=== PATIENT | male | born 1985 | race Caucasian/White ===

== ENCOUNTER 2018-04-11 18:15 | Emergency (ER) | payer OTHER ==
[~2018-04-11] VITALS: Ht 172.7 cm; Wt 56.7 kg
[2018-04-11] MEDS ORDERED: IV RINGERS SOLUTION,LACTATED 1,000 ML IV SCH (18:34)
--- NOTE | 2018-04-11 18:36 | ED.ADGEN ---
Past History Past Medical History: Kidney Stones Smoking: Cigarettes Adult General Chief Complaint Chief Complaint ".. I ve got bad abd. pain..."... Here on the right .. it was higher.. but now lower.. It ann like prior kidney stones.. I ve had them three times... had that US thing to break them up once..." HPI HPI Patient is a 32 year old male who presents with above hx and complaints of abd. pain. His right flank that radiates to his groin. Patient denies any trauma. or dysuria. Patient denies any travel or specific ill contacts. Patient does have a history of prior kidney stones. One previous episode required lithotripsy to break the stone up. Patient has strong family history both her grandfather had an great-grandfather having kidney stones. She denies patient denies any immunosuppression. Patient denies any problems with bowels. Patient recently moved from [facility]. ( No Primary care locally. Review of Systems Review of Systems Constitutional: Denies fever or chills [] Eyes: Denies change in visual acuity, redness, or eye pain [] HENT: Denies nasal congestion or sore throat [] Respiratory: Denies cough or shortness of breath [] Cardiovascular: No additional information not addressed in HPI [] GI: Denies abdominal pain, nausea, vomiting, bloody stools or diarrhea [] : Denies dysuria . Hx. of hematuria yesterday. Musculoskeletal: Rt flank back pain . Denies joint pain []Rt. flank pain. Integument: Denies rash or skin lesions [] Neurologic: Denies headache, focal weakness or sensory changes [] Endocrine: Denies polyuria or polydipsia [] All other systems were reviewed and found to be within normal limits, except as documented in this note. Family History Family History Renal stones Current Medications Current Medications Current Medications Medications (Trade) Dose Ordered Sig/Cari Start Time Stop Time Status Last Admin Dose Admin Famotidine (Pepcid Vial) 20 mg 1X ONCE 04/11/18 19:15 04/11/18 19:16 DC 04/11/18 19:15 20 MG Ketorolac Tromethamine (Toradol) 30 mg 1X ONCE 04/11/18 19:15 04/11/18 19:16 DC 04/11/18 19:15 30 MG Lactated Ringer's 1,000 ml @ 1,000 mls/hr Q1H 04/11/18 18:34 04/11/18 19:33 DC 04/11/18 19:16 1,000 MLS/HR Levofloxacin (Levaquin) 500 mg 1X ONCE 04/11/18 19:15 04/11/18 19:16 DC 04/11/18 19:15 500 MG Ondansetron HCl (Zofran Odt) 8 mg 1X ONCE 04/11/18 19:15 04/11/18 19:16 DC 04/11/18 19:15 8 MG Tamsulosin HCl (Flomax) 0.4 mg 1X ONCE 04/11/18 19:15 04/11/18 19:16 DC 04/11/18 19:15 0.4 MG Allergies Allergies Allergies Coded Allergies Type Severity Reaction Last Updated Verified acetaminophen Allergy Unknown 04/11/18 Yes hydrocodone Allergy Unknown 04/11/18 Yes loratadine Allergy Unknown 04/11/18 Yes montelukast Allergy Unknown 04/11/18 Yes tramadol Allergy Unknown 04/11/18 Yes Physical Exam Physical Exam Constitutional: Well developed, well nourished, Mild to moderate acute distress , non-toxic appearance. [] HENT: Normocephalic, atraumatic, bilateral external ears normal, oropharynx moist, no oral exudates, nose normal. [] Eyes: PERRLA, EOMI, conjunctiva normal, no discharge. Glasses. Neck: Normal range of motion, no tenderness, supple, no stridor. [] Cardiovascular:Heart rate regular rhythm, no murmur [] Lungs & Thorax: Bilateral breath sounds equal apexes, with basilar wheezes and crackles Rt. base. on auscultation [] Abdomen: Bowel sounds decreased, soft, no tenderness, no masses, no pulsatile masses. [] No scrotal tenderness. Declines rectal exam. No penile discharge. Skin: Warm, dry, no erythema, no rash. [] Back: No tenderness, Rt. CVA tenderness. [] Extremities: No tenderness, no cyanosis, no clubbing, ROM intact, no edema. [] No psoas and or heel tap. Neurologic: Alert and oriented X 3, normal motor function, normal sensory function, no focal deficits noted. [] Psychologic: Affect normal, judgement normal, mood normal. [] Current Patient Data Vital Signs Vital Signs Date Time Temp Pulse Resp B/P (MAP) Pulse Ox O2 Delivery O2 Flow Rate FiO2 04/11/18 20:25 20 Room Air 04/11/18 18:39 98.9 102 98 Lab Results Laboratory Tests Test 04/11/18 18:35 White Blood Count 10.8 x10^3/uL (4.0-11.0) Red Blood Count 4.31 x10^6/uL (4.30-5.70) Hemoglobin 14.9 g/dL (13.0-17.5) Hematocrit 41.9 % (39.0-53.0) Mean Corpuscular Volume 97 fL (79-100) Mean Corpuscular Hemoglobin 35 pg (25-35) Mean Corpuscular Hemoglobin Concent 36 g/dL (31-37) Red Cell Distribution Width 12.1 % (11.5-14.5) Platelet Count 264 x10^3/uL (140-400) Neutrophils (%) (Auto) 75 % (31-73) H Lymphocytes (%) (Auto) 14 % (24-48) L Monocytes (%) (Auto) 8 % (0-9) Eosinophils (%) (Auto) 3 % (0-3) Basophils (%) (Auto) 1 % (0-3) Neutrophils # (Auto) 8.1 x10^3uL (1.8-7.7) H Lymphocytes # (Auto) 1.5 x10^3/uL (1.0-4.8) Monocytes # (Auto) 0.9 x10^3/uL (0.0-1.1) Eosinophils # (Auto) 0.3 x10^3/uL (0.0-0.7) Basophils # (Auto) 0.1 x10^3/uL (0.0-0.2) Prothrombin Time 9.8 SEC (9.4-11.4) Prothrombin Time INR 1.0 (0.9-1.1) PTT 27 SEC (23-33) Urine Collection Type Unknown Urine Color Yellow Urine Clarity Clear Urine pH 7.5 Urine Specific [place] 1.015 Urine Protein Neg (NEG-TRACE) Urine Glucose (UA) Neg mg/dL (NEG) Urine Ketones (Stick) Neg mg/dL (NEG) Urine Blood Neg (NEG) Urine Nitrite Neg (NEG) Urine Bilirubin Neg (NEG) Urine Urobilinogen Dipstick 1 mg/dL (0.2 mg/dL) Urine Leukocyte Esterase Neg (NEG) Urine RBC Occ /HPF (0-2) Urine WBC Occ /HPF (0-4) Urine Squamous Epithelial Cells None /LPF Urine Bacteria 0 /HPF (0-FEW) Sodium Level 142 mmol/L (136-145) Potassium Level 4.2 mmol/L (3.5-5.1) Chloride Level 102 mmol/L (98-107) Carbon Dioxide Level 30 mmol/L (21-32) Anion Gap 10 (6-14) Blood Urea Nitrogen 8 mg/dL (8-26) Creatinine 1.1 mg/dL (0.7-1.3) Estimated GFR (Cockcroft-Gault) 77.1 Glucose Level 103 mg/dL (70-99) H Calcium Level 9.6 mg/dL (8.5-10.1) Total Bilirubin 0.2 mg/dL (0.2-1.0) Direct Bilirubin 0.1 mg/dL (0.0-0.2) Aspartate Amino Transferase (AST) 12 U/L (15-37) L Alanine Aminotransferase (ALT) 20 U/L (16-63) Alkaline Phosphatase 79 U/L (46-116) Troponin I Quantitative < 0.017 ng/mL (0-0.055) Total Protein 7.9 g/dL (6.4-8.2) Albumin 3.7 g/dL (3.4-5.0) Amylase Level 88 U/L (25-115) Lipase 69 U/L (73-393) L Urine Opiates Screen Pos (NEG) Urine Methadone Screen Neg (NEG) Urine Barbiturates Neg (NEG) Urine Phencyclidine Screen Neg (NEG) Urine Amphetamine/Methamphetamine Neg (NEG) Urine Benzodiazepines Screen Neg (NEG) Urine Cocaine Screen Neg (NEG) Urine Cannabinoids Screen Neg (NEG) Urine Ethyl Alcohol Neg (NEG) EKG EKG [] Radiology/Procedures Radiology/Procedures My interpretation of acute abdomen shows no acute cardiopulmonary findings. No free air under the diaphragm. Does have abnormal striation in right lower lung field[], scar vs. infiltrate. Course & Med Decision Making Course & Med Decision Making Pertinent Labs and Imaging studies reviewed. (See chart for details). Pt encouraged to stop smoking. Pt. to be on clear fluid diet x 48 hrs. No solids or milk products. Must allow bowel rest. Tylenol and Ibuprofen for pain. Marked pain vicoprofen. Zofran 8 mg up 4 x day nausea and vomiting. Push fruit juices. Return if any concerns. Follow up primary and urology. [] Final Impression Final Impression 1. Abdomen Pain[] 2. Renal colic Rt. 3. Basilar Atelectasis- more on Rt. 4. Tobacco use. Dragon Disclaimer Dragon Disclaimer This electronic medical record was generated, in whole or in part, using a voice recognition dictation system. DO LADD MD April 11, 2018 18:36
[2018-04-11 18:39] VITALS: BP 134/73
[2018-04-11 18:53] LABS: BASO # 0.1 x10^3/uL (0.0-0.2); BASO % 1 % (0-3); EOS # 0.3 x10^3/uL (0.0-0.7); EOS % 3 % (0-3); HEMATOCRIT 41.9 % (39.0-53.0); HEMOGLOBIN 14.9 g/dL (13.0-17.5); LYMPH # 1.5 x10^3/uL (1.0-4.8); LYMPH % 14 % (24-48); MEAN CORPUSCULAR HEMOGLOBIN 35 pg (25-35); MEAN CORPUSCULAR HGB CONC 36 g/dL (31-37); MEAN CORPUSCULAR VOLUME 97 fL (79-100); MONO # 0.9 x10^3/uL (0.0-1.1); MONO % 8 % (0-9); NEUT # 8.1 x10^3uL (1.8-7.7); NEUT % 75 % (31-73); PLATELET COUNT 264 x10^3/uL (140-400); RED BLOOD COUNT 4.31 x10^6/uL (4.30-5.70); RED CELL DISTRIBUTION WIDTH 12.1 % (11.5-14.5); WHITE BLOOD COUNT 10.8 x10^3/uL (4.0-11.0)
[2018-04-11 19:07] LABS: ALBUMIN 3.7 g/dL (3.4-5.0); CALCIUM 9.6 mg/dL (8.5-10.1); CREATININE 1.1 mg/dL (0.7-1.3); DIRECT BILIRUBIN 0.1 mg/dL (0.0-0.2); GFR 77.1; POTASSIUM 4.2 mmol/L (3.5-5.1); TOTAL BILIRUBIN 0.2 mg/dL (0.2-1.0); TOTAL PROTEIN 7.9 g/dL (6.4-8.2)
[2018-04-11 19:14] LABS: AMPHETAMINE/METHAMPHETAMINE NEG (NEG); BARBITURATES NEG (NEG); BENZODIAZEPINES NEG (NEG); CANNABINOIDS NEG (NEG); COCAINE NEG (NEG); METHADONE NEG (NEG); OPIATES POS (NEG); PHENCYCLIDINE NEG (NEG)
[2018-04-11] MEDS ORDERED: ONDANSETRON ODT 4 MG TAB.RAPDIS PO ONE (19:15)
[2018-04-11] MEDS ORDERED: KETOROLAC 30 MG/ML VIAL. IV ONE (19:15)
[2018-04-11] MEDS ORDERED: levoFLOXacin 500 MG TABLET PO ONE (19:15)
[2018-04-11] MEDS ORDERED: FAMOTIDINE 20 MG/2 ML VIAL IVP ONE (19:15)
[2018-04-11] MEDS ORDERED: TAMSULOSIN 0.4 MG CAP.ER.24H. PO ONE (19:15)
[2018-04-11 19:31] LABS: BACTERIA,URINE 0 /HPF (0-FEW); BILIRUBIN,URINE NEG (NEG); CLARITY,URINE CLEAR; COLOR,URINE YELLOW; GLUCOSE,URINE NEG (NEG); NITRITE,URINE NEG (NEG); RBC,URINE OCC /HPF (0-2); UROBILINOGEN,URINE 1 mg/dL (0.2 mg/dL); WBC,URINE OCC /HPF (0-4)
--- NOTE | 2018-04-11 19:57 | RAD ---
CT scan abdomen and pelvis without contrast 04/11/2018 CLINICAL HISTORY: Severe right flank pain for 4 days. TECHNIQUE: Unenhanced, contiguous, 3 mm axial sections were obtained through abdomen and pelvis. One or more of the following individualized dose reduction techniques were utilized for this study: 1. Automated exposure control. 2. Adjustment of the mA and/or kV according to patient size. 3. Use of iterative reconstruction technique. FINDINGS: Images through the lung bases demonstrate patchy areas of subsegmental atelectasis and/or infiltrate involving both lower lobes, right greater than left. The unenhanced CT appearance of the liver, spleen, pancreas, and adrenal glands are within normal limits. Several nonobstructing calculi are seen scattered throughout both kidneys. These measure 2 to 3 mm in size. No ureteral calculus is seen. There is no evidence of obstruction of either collecting system. The abdominal aorta tapers normally. The gallbladder is contracted. No free fluid or free air is seen within the abdomen. There is no evidence of bowel obstruction. The appendix is well-visualized and is within normal limits. Images through the pelvis demonstrate the urinary bladder distended with urine. No distal ureteral calculus is seen. Calcifications are seen within the pelvis consistent with phleboliths. No free fluid is seen. Minimal S-shaped curvature of the thoracolumbar spine is noted. IMPRESSION: 1. Bilateral nonobstructing renal calculi. No ureteral calculus is seen. There is no evidence of obstruction of either collecting system. 2. No acute abnormality is seen. Electronically signed by: Felix Uribe MD (04/11/2018 7:53 PM) [facility]
[2018-04-11] MEDS ORDERED: HYDR-79 PO (20:08)
[2018-04-11] MEDS ORDERED: ONDA8TAB12 PO (20:08)
--- NOTE | 2018-04-11 21:32 | RAD ---
Acute abdominal series to include a PA chest radiograph 04/11/2018 Clinical History: Right flank and abdominal pain for the last 3 days. A PA digital radiograph of the chest was obtained. Supine and erect AP digital radiographs of the abdomen/pelvis were obtained. No previous studies are available for comparison. The cardiac and mediastinal silhouettes are within normal limits in size and configuration. No acute pulmonary infiltrate is seen. No pleural effusion or pneumothorax is noted. The abdominal bowel gas pattern is nonobstructive. A moderate amount stool is seen throughout the colon. There is no evidence of free air. No radiopaque calculus is seen. The osseous structures are grossly intact. Impression: Nonobstructive bowel gas pattern. Electronically signed by: Felix Uribe MD (04/11/2018 9:28 PM) [facility]
== END 2018-04-11 20:25 | disposition home or self-care (01) ==
LOC: ER 18:15
DX: N23 Unspecified renal colic (principal); F17.210 Nicotine dependence, cigarettes, uncomplicated; Z87.442 Personal history of urinary calculi; Z88.6 Allergy status to analgesic agent; Z88.5 Allergy status to narcotic agent; Z88.8 Allergy status to other drugs, medicaments and biological substances
CPT/HCPCS: 36415; 74022; 74176; 80048; 80076; 80307; 81001; 82150; 83690; 84484; 85025; 85610; 85730; 96374; 96375; 99285; J1885; J7120; Q0162; S0028; G0479